=== PATIENT | male | born 1945 | race Caucasian/White ===

== ENCOUNTER 2017-09-27 14:15 | Emergency (ER) | payer BC ==
[~2017-09-27] VITALS: Ht 182.9 cm; Wt 104.0 kg
[2017-09-27 16:16] LABS: APPEARANCE CLEAR ((CLEAR)); BILIRUBIN NEGATIVE; BLOOD NEGATIVE; COLOR YELLOW ((YELLOW)); GLUCOSE (STRIP) NEGATIVE; KETONES NEGATIVE; LEUKOCYTES NEGATIVE; NITRITE NEGATIVE; PROTEIN (STRIP) 30; SPECIFIC GRAVITY 1.012 (1.000-1.030); UCUL ADDED? NO; UROBILINOGEN 0.2 MG/DL (0.2-1.0)
[2017-09-27 16:23] LABS: HEMATOCRIT 35.2 % (38.0-50.0); HEMOGLOBIN 12.5 G/DL (12.5-16.6); MCH 30.6 PG (29.0-34.0); MCHC 35.5 G/DL (30.0-36.0); MCV 86.3 FL (86-99); PLATELET COUNT 150 K/uL (156-360); RBC DIS.WIDTH-CV 12.4 % (11.8-14.6); RBC DIS.WIDTH-SD 39.5 % (39-53); RED BLOOD COUNT 4.08 M/uL (4.00-5.50); WHITE BLOOD COUNT 11.9 K/uL (4.1-10.2)
[2017-09-27 16:38] LABS: CHLORIDE 110 mEq/L (99-109); POTASSIUM 3.5 mEq/L (3.7-5.4); SODIUM 143 mEq/L (136-147)
[2017-09-27 16:40] LABS: GLUCOSE 104 mg/dL (70-99); TOTAL PROTEIN 6.9 g/dL (6.4-8.3)
[2017-09-27 16:42] LABS: TOTAL BILIRUBIN 0.6 mg/dL (0.0-1.0)
[2017-09-27 16:43] LABS: ALKALINE PHOSPHATASE 85 IU/L (3-129)
[2017-09-27 16:44] LABS: CREATININE 1.4 mg/dL (0.6-1.3); GFR ESTIMATE (CALCULATED) 53 mL/min/ (58.99-99999)
[2017-09-27 16:45] LABS: AST (GOT) 17 IU/L (2-34); UREA NITROGEN (BUN) 19 mg/dL (9-23)
[2017-09-27 16:47] LABS: ALT (GPT) 18 IU/L (3-49)
[2017-09-27] MEDS ORDERED: MECLIZINE HCL25 MG PO (19:02)
[2017-09-27 19:25] VITALS: BP 167/90
== END 2017-09-27 19:26 | disposition home or self-care (01) ==
LOC: EME 14:15
PROVIDERS: Emergency Medicine
DX: H81.399 Other peripheral vertigo, unspecified ear (principal); I13.0 Hypertensive heart and chronic kidney disease with heart failure and stage 1 through stage 4 chronic kidney disease, or unspecified chronic kidney disease; I50.9 Heart failure, unspecified; N18.9 Chronic kidney disease, unspecified; E78.5 Hyperlipidemia, unspecified; J44.9 Chronic obstructive pulmonary disease, unspecified; K21.9 Gastro-esophageal reflux disease without esophagitis; Z95.5 Presence of coronary angioplasty implant and graft; Z96.642 Presence of left artificial hip joint
CPT/HCPCS: 70450; 80053; 81003; 85027; 93005; 99281; 99285; J2405